=== PATIENT | male | born 1950 | race Caucasian/White ===

== ENCOUNTER 2017-01-14 08:26 | Emergency (ER) | payer MEDICARE ==
[~2017-01-14] VITALS: Ht 175.3 cm; Wt 112.5 kg
[~2017-01-14 08:26] MED LIST: HYDR-3240 PO; [UNRECOGNIZED DRUG - CODE] PO
[2017-01-14 08:27] VITALS: BP 135/100
[2017-01-14] MEDS ORDERED: HYDROcodone/APAP 5/325 TABLET ONE (09:14)
[2017-01-14] MEDS ORDERED: HYDROcodone/APAP 5/325 TABLET PO ONE (09:30)
[2017-01-14 09:49] LABS: BLOOD UREA NITROGEN 26 mg/dL (7-18)
== END 2017-01-14 10:27 | disposition home or self-care (01) ==
LOC: ED 09:58
DX: M1A.0620 Idiopathic chronic gout, left knee, without tophus (tophi) (principal); M10.9 Gout, unspecified; I48.2 Chronic atrial fibrillation; G56.00 Carpal tunnel syndrome, unspecified upper limb
CPT/HCPCS: 36415; 80048; 82040; 85025; 99284; J7512

== ENCOUNTER 2017-02-04 09:04 | Emergency (ER) | payer MEDICARE ==
[~2017-02-04] VITALS: Ht 175.3 cm; Wt 107.3 kg
[2017-02-04 09:06] VITALS: BP 150/101
== END 2017-02-04 10:07 | disposition left against medical advice (07) ==
LOC: ED 09:40
DX: M25.572 Pain in left ankle and joints of left foot (principal)
CPT/HCPCS: 99281